=== PATIENT | female | born 1960 | race Caucasian/White ===

== ENCOUNTER 2017-02-07 17:20 | Inpatient (IN) | payer OTHER ==
[2017-02-07] MEDS ORDERED: Sodium Chloride 0.9% 1,000 ML IV STA (18:28)
--- NOTE | 2017-02-07 18:50 | ED PDOC ---
Arrival/HPI - General Chief Complaint: Chest Pain Time Seen by Provider: 02/07/17 17:52 Historian: Patient - History of Present Illness Narrative History of Present Illness (Text): 02/07/17 18:50 Carmen Santiago is a 56 year old female, with a prior hx of tia/stroke as per daughter in law, presents to the emergency department for evaluation following unwitnessed syncopal episode. Patient states that she had been feeling weak since waking up today morning and that she developed some dizziness and room- spinning sensation before she passed out in the the bathroom after taking a shower. Patient recalls events prior to passing out and states that she was unconscious on the bathroom floor for about 10-15 minutes. Patient was able to get back onto her feet and ambulate around the house, but felt weak and tired. When patient's daughter in law came back from work, she noticed that patient was pale and "not herself." Denies any fever, chills, headache, nausea, vomiting , diarrhea, urinary symptoms, or any other complaints at this time. Patient syncopal event occurred this morning. She was seen by daughter in law several hours later at approximately 430 pm. She also reports intermittent chest discomfort for past several days, sharp and stabbing, not pleuritic, not exertional. No calf pain or swelling. Time/Duration: Other (today morning ) Symptom Course: Unchanged Activities at Onset: Light Context: Home Past Medical History - Provider Review Nursing Documentation Reviewed: Yes - Cardiac Hx Hypertension: Yes - Pulmonary Hx Respiratory Disorders: No - Neurological Hx Transient Ischemic Attacks (TIA): Yes - HEENT Hx HEENT Disorder: No - Renal Hx Renal Disorder: No - Endocrine/Metabolic Hx Endocrine Disorders: No - Hematological/Oncological Hx Blood Disorders: No - Integumentary Hx Dermatological Disorder: No - Musculoskeletal/Rheumatological Hx Arthritis: Yes - Gastrointestinal Hx Gastrointestinal Disorders: No - Genitourinary/Gynecological Hx Genitourinary Disorders: No - Psychiatric Hx Psychophysiologic Disorder: No Hx Substance Use: No - Anesthesia Hx Anesthesia: No - Suicidal Assessment Feels Threatened In Home Enviroment: No Family/Social History - Physician Review Nursing Documentation Reviewed: Yes Family/Social History: No Known Family HX Smoking Status: Never Smoked Hx Alcohol Use: No Hx Substance Use: No Hx Substance Use Treatment: No Allergies/Home Meds Allergies/Adverse Reactions: Allergies No Known Allergies Allergy (Verified 10/20/15 23:43) Home Medications: Home Meds Medication Instructions Recorded Confirmed Alendronate [Fosamax] 70 mg PO BID 02/07/17 02/07/17 Calcium Carbonate/Vitamin D3 1 each PO BID 02/07/17 02/07/17 [Os-Talha 500-Vit D3 200 Caplet] Ergocalciferol [Drisdol] 50,000 iu PO DAILY 02/07/17 02/07/17 Gemfibrozil [Lopid] 600 mg PO BID 02/07/17 02/07/17 Omeprazole 20 mg PO BID 02/07/17 02/07/17 Pregabalin [Lyrica] 75 mg PO DAILY 02/07/17 02/07/17 Simvastatin [Zocor] 40 mg PO DAILY 02/07/17 02/07/17 Review of Systems - Review of Systems Constitutional: absent: Fatigue, Fevers, Night Sweats Eyes: absent: Vision Changes, Photophobia, Eye Pain ENT: absent: Hearing Changes, Sore Throat Respiratory: absent: SOB, Cough, Sputum Cardiovascular: Chest Pain, Syncope. absent: Palpitations, Calf Pain, REID Gastrointestinal: absent: Abdominal Pain, Constipation, Diarrhea, Nausea, Vomiting Genitourinary Female: absent: Dysuria, Frequency Musculoskeletal: absent: Back Pain Skin: absent: Rash Neurological: Dizziness. absent: Headache, Focal Weakness, Gait Changes Endocrine: absent: Polyuria Hemo/Lymphatic: absent: Easy Bleeding Physical Exam - Physical Exam Narrative Physical Exam (Text): Head: Atraumatic. Normocephalic. Eyes: PERRL. EOMI. Conjunctivae are not pale. ENT: Mucous membranes are moist and intact. Oropharynx is clear and symmetric. Neck: Supple. Full ROM. No JVD. No lymphadenopathy. Cardiovascular: Regular rate. Regular rhythm. Systolic murmur. Distal pulses are 2+ and symmetric. Pulmonary/Chest: No evidence of respiratory distress. Clear to auscultation bilaterally. No wheezing, rales or rhonchi. Abdominal: Obese. Soft and non-distended. There is no tenderness. No rebound , guarding, or rigidity. No organomegaly. Good bowel sounds. Back: No CVA tenderness. No midline tenderness. Extremities: Bilateral lower extremity edema, nonpitting. No joint pain with ROM. No cyanosis. No clubbing. Full range of motion in all extremities. No calf tenderness. Skin: Skin is pale. Neurological: Alert, awake, and oriented to person, place and time. No slurred speech. No facial droop. No pronator drift. No focal weakness. No sensory deficits. Psychiatric: Good eye contact. Normal interaction, affect, and behavior. Vital Signs Reviewed: Yes Vital Signs Pulse Resp BP Pulse Ox 02/07/17 19:23 65 17 103/65 98 02/07/17 17:21 68 20 115/69 97 Temperature: Afebrile Blood Pressure: Hypotensive Pulse: Regular Respiratory Rate: Normal Appearance: Positive for: Non-Toxic, Comfortable, Other (Obese ) Pain Distress: None Mental Status: Positive for: Alert and Oriented X 3 Medical Decision Making ED Course and Treatment: 02/07/17 18:58 Impression: A 56 year old female who presents to the emergency department for evaluation following syncopal episode. Differential Diagnosis included but are not limited to: cad, dehydration, cardiovascular disease, cva Plan: -- Labs, cardiac enzymes -- EKG -- Chest X-ray -- IVF -- Urinalysis -- Reassess and disposition Progress Notes: Patient is present with daughter in law who translates. On exam she is is hypotensive, but denies any pain or discomfort. Neurologically intact. She reports she has been eating and drinking well with no vomiting or diarrhea. IV fluids given and patient with improved BP. Currently no chest pain in ED although she has had nonspecific pain that is not exertional reportedly over past several days. Patient with no calf pain, Ddimer unremarkable. Dizziness resolved after iv fluids and patient ambulates without difficulty. No known past cardiac history reported. Re-exam, CT head unremarkable, neuro exam remains intact. Will admit to telemetry for syncope, hypotension. Renal insufficiency noted, no back pain or urinary symptoms described. Case reviewed with Dr. Ayala, accepts admission for hospitalist. Elevated WBC noted but patient afebrile, unremarkable lactate. No respiratory of GI complaints with serial exams. - Lab Interpretations Lab Results: 02/07/17 18:55 02/07/17 18:55 Lab Results 02/07/17 19:10: POC Glucose (mg/dL) 138 H 02/07/17 18:55: Urine Color Yellow, Urine Appearance Slight-cloudy, Urine pH 5.5 , Ur Specific [place] >= 1.030, Urine Protein 30 H, Urine Glucose (UA) Negative , Urine Ketones Trace H, Urine Blood Negative, Urine Nitrate Negative, Urine Bilirubin Small H, Urine Urobilinogen 1.0 H, Ur Leukocyte Esterase Trace H, Urine RBC TEST NOT PERFORMED, Urine WBC 5 - 10, Ur Epithelial Cells 10 - 12, Amorphous Sediment Moderate 02/07/17 18:55: Sodium 143, Chloride 102, Potassium 4.7, Carbon Dioxide 25, Anion Gap 21 H, BUN 34 H, Creatinine 1.6 H, Est GFR ( Amer) 40, Est GFR ( Non-Af Amer) 33, Random Glucose 110, Calcium 10.2, Total Bilirubin 0.6, AST 28, ALT 31, Alkaline Phosphatase 63, Lactate Dehydrogenase 665, Total Creatine Kinase 36, Troponin I < 0.01, Total Protein 7.7, Albumin 4.4, Globulin 3.3, Albumin/Globulin Ratio 1.4 02/07/17 18:55: pO2 38, VBG pH 7.27 L, VBG pCO2 60.0, VBG HCO3 27.6, VBG Total CO2 29.4 H, VBG O2 Sat (Calc) 69.5 H, VBG Base Excess -0.6 L, VBG Potassium 4.6 , Sodium 141.0, Chloride 106.0, Glucose 115 H, Lactate 1.7, FiO2 21.0, Venous Blood Potassium 4.6 02/07/17 18:55: PT 10.5, INR 0.97, APTT 23.4 L, D-Dimer, Quantitative 0.25 02/07/17 18:55: WBC 13.3 H, RBC 4.57, Hgb 13.1, Hct 38.9, MCV 85.1, MCH 28.7, MCHC 33.7, RDW 14.8 H, Plt Count 478 H, MPV 8.7, Gran % 73.6 H, Lymph % (Auto) 16.8 L, Person % (Auto) 8.2 H, Eos % (Auto) 1.2 L, Baso % (Auto) 0.2, Gran # 9.79 H, Lymph # 2.2, Person # 1.1 H, Eos # 0.2, Baso # 0.03 - RAD Interpretation Radiology Orders: 02/07/17 18:22 CHEST PORTABLE [RAD] Stat 02/07/17 19:10 HEAD W/O CONTRAST [CT] Stat - EKG Interpretation EKG Interpretation (Text): 02/07/17 22:55 EKG at 17:45 normal sinus rhythm rate of 63 with minimal voltage criteria for LVH Interpreted by ED Physician: Yes Type: 12 lead EKG - Medication Orders Current Medication Orders: Acetaminophen (Tylenol 325mg Tab) 650 mg PO Q6H PRN PRN Reason: Pain, moderate (4-7) Aspirin (Ecotrin) 81 mg PO DAILY MARY Atorvastatin Calcium (Lipitor) 20 mg PO DIN MARY Gemfibrozil (Lopid) 600 mg PO BID MARY Heparin Sodium (Porcine) (Heparin) 5,000 units SC Q12 MARY PRN Reason: Protocol Sodium Chloride (Sodium Chloride 0.9%) 1,000 mls @ 125 mls/hr IV .Q8H [facility] Last Admin: 02/07/17 22:03 Dose: 125 mls/hr Ceftriaxone Sodium (Rocephin 1 Gram Ivpb) 1 gm in 100 mls @ 100 mls/hr IVPB STAT STA PRN Reason: Protocol Stop: 02/07/17 22:54 Ondansetron HCl (Zofran Inj) 4 mg IVP Q6H PRN PRN Reason: Nausea/Vomiting Pantoprazole Sodium (Protonix Ec Tab) 40 mg PO DAILY MARY Pregabalin (Lyrica) 75 mg PO DAILY MARY Discontinued Medications Aspirin (Aspirin) 325 mg PO STAT STA Stop: 02/07/17 22:33 Heparin Sodium (Porcine) (Heparin) 5,000 units SC Q12 MARY PRN Reason: Protocol Sodium Chloride (Sodium Chloride 0.9%) 1,000 mls @ 1,000 mls/hr IV .Q1H STA Stop: 02/07/17 19:27 Last Admin: 02/07/17 19:00 Dose: 1,000 mls/hr Ceftriaxone Sodium (Rocephin 1 Gram Ivpb) 1 gm in 100 mls @ 100 mls/hr IVPB DAILY [facility] PRN Reason: Protocol - Scribe Statement The provider has reviewed the documentation as recorded by the Jimmyibsergo Mercado Provider Attestation: Provider Scribe Attestation: All medical record entries made by the Scribe were at my direction and personally dictated by me. I have reviewed the chart and agree that the record accurately reflects my personal performance of the history, physical exam, medical decision making, and the department course for this patient. I have also personally directed, reviewed, and agree with the discharge instructions and disposition. Disposition/Present on Arrival - Present on Arrival Any Indicators Present on Arrival: No History of DVT/PE: No History of Uncontrolled Diabetes: No Urinary Catheter: No History of Decub. Ulcer: No History Surgical Site Infection Following: None - Disposition Have Diagnosis and Disposition been Completed?: Yes Diagnosis: Syncope, Renal insufficiency, Chest pain, Leukocytosis Disposition: HOSPITALIZED Disposition Time: 19:40 Patient Plan: Admission, Telemetry Patient Problems: Current Active Problems Problem Status Onset Chest pain Acute Renal insufficiency Acute Syncope Acute Condition: FAIR
[2017-02-07 19:14] LABS: VENOUS BLOOD GAS BASE EXCESS -0.6 mmol/L (0.0-2.0); VENOUS BLOOD GAS PO2 38 mm/Hg (30-55); VENOUS BLOOD PH 7.27 (7.32-7.43)
[2017-02-07 19:18] LABS: BASO # 0.03 K/mm3 (0.0-2.0); BASO % 0.2 % (0.0-3.0); EOS # 0.2 (0.0-0.7); EOS % 1.2 % (1.5-5.0); GRAN # 9.79 (1.4-6.5); GRAN % 73.6 % (50.0-68.0); HEMOGLOBIN 13.1 gm/dL (12.0-16.0); LYMPH # 2.2 (1.2-3.4); LYMPH % 16.8 % (22.0-35.0); MEAN CELL VOLUME 85.1 fL (80.0-105.0); MEAN CORPUSCULAR HEMOGLOBIN 28.7 pg (25.0-35.0); MEAN CORPUSCULAR HGB CONC 33.7 g/dl (31.0-37.0); MEAN PLATELET VOLUME 8.7 fl (7.0-11.0); MONO # 1.1 (0.1-0.6); MONO % 8.2 % (1.0-6.0); PLATELET COUNT 478 10^3/uL (120.0-450.0); RBC 4.57 10^6/uL (3.5-6.1); RED CELL DISTRIBUTION WIDTH 14.8 % (11.5-14.5); WHITE BLOOD COUNT 13.3 10^3/ul (4.5-11.0)
[2017-02-07 19:21] LABS: PH,URINE 5.5 (4.7-8.0); URINE BILIRUBIN SMALL (NEGATIVE); URINE BLOOD NEGATIVE (NEGATIVE); URINE GLUCOSE (UA) NEGATIVE (NEGATIVE); URINE LEUKOCYTE ESTERASE TRACE Leu/uL (NEGATIVE); URINE NITRATE NEGATIVE (NEGATIVE); URINE PROTEIN 30 mg/dL (<30 mg/dL)
[2017-02-07 19:27] LABS: URINE APPEARANCE SLIGHT-CLOUDY (CLEAR); URINE COLOR YELLOW (YELLOW)
[2017-02-07 19:29] LABS: ALB/GLOB RATIO 1.4 (1.1-1.8); ALBUMIN 4.4 g/dL (3.0-4.8); ALT/SGPT 31 U/L (7-56); AST/SGOT 28 U/L (15-39); BLOOD UREA NITROGEN 34 mg/dL (7-21); CALCIUM 10.2 mg/dL (8.4-10.5); GFR AFRICAN-AMERICAN 40; GFR NON-AFRICAN AMERICAN 33
[2017-02-07 19:30] LABS: URINE AMORPHOUS SEDIMENT MODERATE
[2017-02-07 19:33] LABS: INR 0.97 (0.93-1.08); PARTIAL THROMBOPLASTIN TIME 23.4 Seconds (23.7-30.8); PROTHROMBIN TIME 10.5 Seconds (9.9-11.8)
[2017-02-07 19:34] LABS: D DIMER 0.25 mg/L FEU (0-0.50)
[2017-02-07 19:57] LABS: TROPONIN I < 0.01 ng/mL
--- NOTE | 2017-02-07 20:31 | CP.PCM.HP ---
<Porter Onofre - Last Filed: 02/08/17 03:42> History of Present Illness - History of Present Illness History of Present Illness: CC: pre-syncope and chest pressure Patient is a 56 year old female with a PMHx of TIA, HPL, GERD, and pericardial effusion who presents to the ED for evaluation of an unwitnessed pre-syncopal episode. States that she has been feeling week and dizzy for the past couple of day and the symptoms were exacerbated this AM after stepping out of the shower. States that she felt that the room was spinning and then sat down on the floor. She denies any loss of consciousness or hitting her head. After the pre- syncopal episode the patient felt weak and she was noted to have pale complexion by her friend. Additionally patient states she felt chest pressure localized to the left parasternal region. The pressure is worse with activity and is associated with her "jaw locking". Also admits to dysnpea on exertion. Denies fever, chills, blurry vision, tinnitis, abdominal pain, N/V, diarrhea, constipation, and urinary symptoms. PMHx: stroke, arthritis and obesity PSHx: none Allergies: NKDA Social Hx: denies ETOH use, denies Tobacco use, denies illicit drug use Medications: please see MAR ECG- NSR HR 63 QTc 413 Present on Admission - Present on Admission Any Indicators Present on Admission: No Review of Systems - Review of Systems Review of Systems: 12 point review of systems negative except as indicated in HPI. Past Patient History - Past Social History Smoking Status: Never Smoked - CARDIAC Hx Hypertension: Yes - PULMONARY Hx Respiratory Disorders: No - NEUROLOGICAL Hx Transient Ischemic Attacks (TIA): Yes - HEENT Hx HEENT Problems: No - RENAL Hx Chronic Kidney Disease: No - ENDOCRINE/METABOLIC Hx Endocrine Disorders: No - HEMATOLOGICAL/ONCOLOGICAL Hx Blood Disorders: No - INTEGUMENTARY Hx Dermatological Problems: No - MUSCULOSKELETAL/RHEUMATOLOGICAL Hx Arthritis: Yes - GASTROINTESTINAL Hx Gastrointestinal Disorders: No - GENITOURINARY/GYNECOLOGICAL Hx Genitourinary Disorders: No - PSYCHIATRIC Hx Psychophysiologic Disorder: No Hx Substance Use: No - SURGICAL HISTORY Hx Surgeries: No - ANESTHESIA Hx Anesthesia: No Meds Allergies/Adverse Reactions: Allergies Allergy/AdvReac Type Severity Reaction Status Date / Time No Known Allergies Allergy Verified 10/20/15 23:43 Physical Exam - Constitutional Appears: Non-toxic, No Acute Distress - Head Exam Head Exam: ATRAUMATIC, NORMAL INSPECTION - Eye Exam Eye Exam: EOMI, Normal appearance - ENT Exam ENT Exam: Mucous Membranes Moist - Neck Exam Neck exam: Positive for: Normal Inspection. Negative for: Tenderness - Respiratory Exam Respiratory Exam: Clear to Auscultation Bilateral, NORMAL BREATHING PATTERN. absent: Rales, Rhonchi, Wheezes - Cardiovascular Exam Cardiovascular Exam: REGULAR RHYTHM, +S1, +S2 - GI/Abdominal Exam GI & Abdominal Exam: Soft. absent: Guarding, Rebound, Rigid - Neurological Exam Neurological exam: Alert, CN II-XII Intact, Oriented x3 - Psychiatric Exam Psychiatric exam: Normal Affect, Normal Mood - Skin Skin Exam: Dry, Normal Color, Warm Results - Vital Signs Recent Vital Signs: Last Vital Signs Temp Pulse 65 02/07/17 19:23 Resp 17 02/07/17 19:23 BP 103/65 02/07/17 19:23 Pulse Ox 98 02/07/17 19:23 - Labs Result Diagrams: 02/07/17 18:55 02/07/17 18:55 Labs: Laboratory Results - last 24 hr 02/07/17 02/07/17 02/07/17 18:55 18:55 18:55 WBC 13.3 H RBC 4.57 Hgb 13.1 Hct 38.9 MCV 85.1 MCH 28.7 MCHC 33.7 RDW 14.8 H Plt Count 478 H MPV 8.7 Gran % 73.6 H Lymph % (Auto) 16.8 L [place] % (Auto) 8.2 H Eos % (Auto) 1.2 L Baso % (Auto) 0.2 Gran # 9.79 H Lymph # 2.2 [place] # 1.1 H Eos # 0.2 Baso # 0.03 PT 10.5 INR 0.97 APTT 23.4 L D-Dimer, Quantitative 0.25 pO2 38 VBG pH 7.27 L VBG pCO2 60.0 VBG HCO3 27.6 VBG Total CO2 29.4 H VBG O2 Sat (Calc) 69.5 H VBG Base Excess -0.6 L VBG Potassium 4.6 Sodium 141.0 Chloride 106.0 Glucose 115 H Lactate 1.7 FiO2 21.0 Potassium Carbon Dioxide Anion Gap BUN Creatinine Est GFR ( Amer) Est GFR (Non-Af Amer) POC Glucose (mg/dL) Random Glucose Calcium Total Bilirubin AST ALT Alkaline Phosphatase Lactate Dehydrogenase Total Creatine Kinase Troponin I Total Protein Albumin Globulin Albumin/Globulin Ratio Venous Blood Potassium 4.6 Urine Color Urine Appearance Urine pH Ur Specific [place] Urine Protein Urine Glucose (UA) Urine Ketones Urine Blood Urine Nitrate Urine Bilirubin Urine Urobilinogen Ur Leukocyte Esterase Urine RBC Urine WBC Ur Epithelial Cells Amorphous Sediment 02/07/17 02/07/17 02/07/17 18:55 18:55 19:10 WBC RBC Hgb Hct MCV MCH MCHC RDW Plt Count MPV Gran % Lymph % (Auto) [place] % (Auto) Eos % (Auto) Baso % (Auto) Gran # Lymph # [place] # Eos # Baso # PT INR APTT D-Dimer, Quantitative pO2 VBG pH VBG pCO2 VBG HCO3 VBG Total CO2 VBG O2 Sat (Calc) VBG Base Excess VBG Potassium Sodium 143 Chloride 102 Glucose Lactate FiO2 Potassium 4.7 Carbon Dioxide 25 Anion Gap 21 H BUN 34 H Creatinine 1.6 H Est GFR ( Amer) 40 Est GFR (Non-Af Amer) 33 POC Glucose (mg/dL) 138 H Random Glucose 110 Calcium 10.2 Total Bilirubin 0.6 AST 28 ALT 31 Alkaline Phosphatase 63 Lactate Dehydrogenase 665 Total Creatine Kinase 36 Troponin I < 0.01 Total Protein 7.7 Albumin 4.4 Globulin 3.3 Albumin/Globulin Ratio 1.4 Venous Blood Potassium Urine Color Yellow Urine Appearance Slight-cloudy Urine pH 5.5 Ur Specific [place] >= 1.030 Urine Protein 30 H Urine Glucose (UA) Negative Urine Ketones Trace H Urine Blood Negative Urine Nitrate Negative Urine Bilirubin Small H Urine Urobilinogen 1.0 H Ur Leukocyte Esterase Trace H Urine RBC TEST NOT PERFORMED Urine WBC 5 - 10 Ur Epithelial Cells 10 - 12 Amorphous Sediment Moderate Assessment & Plan - Assessment and Plan (Free Text) Assessment: Patient is a 56 year old female with a PMHx of TIA, HPL, GERD, and pericardial effusion who is being admitted to the hospital for evaluation and treatment of a pre-syncopal episode and chest pressure. 1. Pre-syncope; Dizziness - cardiac vs orthostatic vs vasovagal vs orthostatic - CT of head ordered by ED and is pending at time of admission - Neuro checks - Sabrina Sosa Pixs negative - Orthostatics - EKG reviewed- NSR HR 63 QTc 413 2. Chest Pain - Hx of Pericardial effusion- patient left AMA and did not follow up with physician - trend troponins - serial EKGs - ECHO - Cardiology consult - TSH - start aspirin 81mg if the CT of head shows no acute intracranial hemorrhage 3. SHA - likely pre-renal in nature - NS @ 125 - fluids started before FeNA Urinary Na could be orderd 4. Possible UTI; leukocytosis - blood cultures - urine cultures - one time dose of ceftriaxone then recheck UTI in AM 5. Acidemia on VBG - not retaining Co2 - repeat VBG in AM 6. History of Migraine Headaches - continue home lyrica 7. Morbid Obesity - lipid profile - A1C 8. History of HPL - lipid profile - continue home gemfibrozil - continue home statin 9. PPX - subq heparin q12 starting tmr if the CT of head shows no acute intracranial hemorrhage - pantoprazole - patient discussed with attending, Dr. Ayala. <Lucy PATTERSON,Oli - Last Filed: 02/08/17 06:46> Results - Vital Signs Recent Vital Signs: Last Vital Signs Temp 97.6 F 02/08/17 04:00 Pulse 70 02/08/17 06:00 Resp 18 02/08/17 04:00 BP 148/80 02/08/17 04:00 Pulse Ox 98 02/08/17 04:00 - Labs Result Diagrams: 02/07/17 18:55 02/07/17 18:55 Labs: Laboratory Results - last 24 hr 02/08/17 02/08/17 01:40 01:40 Lactic Acid 1.4 Total Creatine Kinase 21 L Troponin I < 0.01 NT-Pro-B Natriuret Pep 81.7 Attending/Attestation - Attestation I have personally seen and examined this patient.: Yes I have fully participated in the care of the patient.: Yes I have reviewed all pertinent clinical information: Yes Notes (Text): 02/08/17 06:45 -I agree with above H&P completed by the resident physician with the following additions and/or changes: The patient is a 56 year old, morbidly obese, Slovak speaking, woman with a history of TIA, HL and GERD. Of note, per old records, the patient was [place] [facility] [place]. On that admission, the she was found to have an anterior pericardial effusion on 2D-echo and elevated serum troponin, for which a cardiac cath was planned. However, she left AMA prior to the procedure. She admits to not following up with any service desk agent since that time. She now presents with pre-syncope, fatigue, chest pain and SHA. Consequently, a 2D-echo , serial trops and EKGs, HgA1c, lipids and TSH have been ordered. She will be placed on aggressive IVFs and orthostatics will also be checked. Cardiology has been consulted.
--- NOTE | 2017-02-07 20:36 | CARD ---
APPROVED REPORT EKG Measurement Heart [id number] <Conclusion> Normal sinus rhythm Minimal voltage criteria for LVH, may be normal variant Borderline ECG
[2017-02-07] MEDS ORDERED: cefTRIAXone 1 gm 1 GM/100 ML BAG IVPB STA (21:55)
[2017-02-07] MEDS: Sodium Chloride 0.9% 1,000 ML IV SCH (22:03)
--- NOTE | 2017-02-07 22:10 | CT ---
EXAM: CT Head Without Intravenous Contrast CLINICAL HISTORY: The patient age is 56 years old and is female; Signs and symptoms; Syncope and collapse Facility exam id and description: Ct heads head w/o contrast TECHNIQUE: Axial computed tomography images of the head/brain without intravenous contrast. This CT exam was performed using one or more of the following dose reduction techniques: automated exposure control, adjustment of the mA and/or kV according to patient size, and/or use of iterative reconstruction technique. EXAM DATE/TIME: 02/07/2017 7:10 PM COMPARISON: CT - HEAD W/O CONTRAST 10/22/2015 8:07:25 AM FINDINGS: Brain: Artifact limits evaluation of the base of the brain. The white-kelsey differentiation is preserved demonstrating no acute territorial type infarct. No acute intracranial hemorrhage is seen. There are calcifications within the globus pallidus bilaterally, which are likely physiologic. No edema. Midline shift: There is no midline shift. Ventricles: No ventriculomegaly. Bones/joints: The calvarium demonstrates no evidence for a depressed fracture. Soft tissues: No acute abnormality. Vasculature: There is minimal atherosclerotic calcification of the cavernous internal carotid arteries. Sinuses: A small mucous retention cyst or polyp is visualized within the left maxillary sinus. Mild polypoid mucosal thickening is visualized within the right frontal sinus. Mastoid air cells: No mastoid effusion. IMPRESSION: 1. No definitive acute intracranial hemorrhage or acute territorial type infarct. Artifact limits evaluation of the base of the brain. 2. Paranasal sinus disease is noted above.
[2017-02-08 00:44] VITALS: BMI 50.8
[2017-02-08 02:23] LABS: B-TYPE NATRIURETIC PEPTIDE 81.7 pg/mL (0-450)
[2017-02-08 02:28] LABS: TROPONIN I < 0.01 ng/mL
[2017-02-08 04:25] VITALS: RESP 18
[2017-02-08] MEDS: Sodium Chloride 0.9% 1,000 ML IV SCH (06:50)
[2017-02-08 07:03] LABS: VENOUS BLOOD GAS BASE EXCESS -0.4 mmol/L (0.0-2.0); VENOUS BLOOD GAS PO2 201 mm/Hg (30-55); VENOUS BLOOD PH 7.38 (7.32-7.43)
[2017-02-08 07:07] LABS: BASO # 0.02 K/mm3 (0.0-2.0); BASO % 0.2 % (0.0-3.0); EOS # 0.1 (0.0-0.7); EOS % 1.3 % (1.5-5.0); HEMOGLOBIN 11.2 gm/dL (12.0-16.0); LYMPH # 2.1 (1.2-3.4); LYMPH % 22.5 % (22.0-35.0); MEAN CELL VOLUME 83.9 fL (80.0-105.0); MEAN CORPUSCULAR HEMOGLOBIN 27.8 pg (25.0-35.0); MEAN CORPUSCULAR HGB CONC 33.1 g/dl (31.0-37.0); MEAN PLATELET VOLUME 8.6 fl (7.0-11.0); MONO # 0.8 (0.1-0.6); PLATELET COUNT 372 10^3/uL (120.0-450.0); RBC 4.03 10^6/uL (3.5-6.1); RED CELL DISTRIBUTION WIDTH 14.5 % (11.5-14.5); WHITE BLOOD COUNT 9.4 10^3/ul (4.5-11.0)
[2017-02-08 07:27] LABS: ALB/GLOB RATIO 1.1 (1.1-1.8); ALBUMIN 3.4 g/dL (3.0-4.8); ALT/SGPT 28 U/L (7-56); AST/SGOT 21 U/L (15-39); BLOOD UREA NITROGEN 23 mg/dL (7-21); CALCIUM 8.9 mg/dL (8.4-10.5); GFR AFRICAN-AMERICAN > 60; GFR NON-AFRICAN AMERICAN > 60; HDL CHOLESTEROL 59 mg/dL (29-60); MAGNESIUM 1.9 mg/dL (1.7-2.2)
[2017-02-08 07:38] LABS: LDL CHOLESTEROL 119 mg/dL (0-129)
[2017-02-08 07:41] LABS: TROPONIN I < 0.01 ng/mL
[2017-02-08] MEDS ORDERED: cefTRIAXone 1 gm 1 GM/100 ML BAG IVPB SCH (10:00)
[2017-02-08] MEDS ORDERED: Pantoprazole 40 mg EC Tab PO SCH (10:00)
--- NOTE | 2017-02-08 10:20 | RAD ---
HISTORY: chest pain COMPARISON: Comparison made with prior study 10/21/2015. FINDINGS: LUNGS: Poor inspiration with low lung volumes, mild crowded markings bronchovascular and mild bibasilar atelectasis. There is also elevation of the right hemidiaphragm which could be due to eventration. Note that the medial lung apices are partially obscured by overlying facial soft tissue and mandible artifact. PLEURA: No significant pleural effusion identified, no pneumothorax apparent. CARDIOVASCULAR: Cardiomegaly. OSSEOUS STRUCTURES: No significant abnormalities. VISUALIZED UPPER ABDOMEN: Normal. OTHER FINDINGS: None. IMPRESSION: Poor inspiration with low lung volumes, mild crowded markings bronchovascular and mild bibasilar atelectasis. There is also elevation of the right hemidiaphragm which could be due to eventration
[2017-02-08 10:29] VITALS: O2SAT 99
[2017-02-08 12:06] LABS: URINE BILIRUBIN NEGATIVE (NEGATIVE); URINE BLOOD TRACE-INTACT (NEGATIVE); URINE GLUCOSE (UA) NEGATIVE (NEGATIVE); URINE LEUKOCYTE ESTERASE NEGATIVE Leu/uL (NEGATIVE); URINE NITRATE NEGATIVE (NEGATIVE); URINE PROTEIN NEGATIVE mg/dL (<30 mg/dL); URINE UROBILINOGEN 0.2 E.U./dL (<1 E.U./dL)
[2017-02-08 12:12] LABS: URINE APPEARANCE CLEAR (CLEAR); URINE COLOR YELLOW (YELLOW)
[2017-02-08 12:32] LABS: URINE BACTERIA FEW (NEG); URINE RBC 0 - 2 /hpf (0-2); URINE WBC 0 - 2 /hpf (0-6)
[2017-02-08 13:26] VITALS: PULSE 73
[2017-02-08 13:40] VITALS: BP 160/81; TEMP 92.5
[2017-02-08 15:00] LABS: TROPONIN I < 0.01 ng/mL
--- NOTE | 2017-02-08 17:50 | CON ---
DATE: 02/08/2017 INDICATIONS: Dizziness, lightheadedness, possible syncope. HISTORY OF PRESENT ILLNESS: This is 56-year-old Spanish woman, who does not speak Chinese. The information is from the chart and Dr. Willingham. She has lightheaded episode at home and may have passed out, although this is not definite. She has been on under some stress, and currently there is a illness in the family. She had prior syncope and was worked up in [facility] in the past. There was no chest pain, shortness of breath, orthopnea, PND, edema. There was a vertiginous sensation. There was no fever, chills, cough, sputum production, hemoptysis, abdominal pain, nausea, vomiting, diarrhea, constipation or melena. PAST MEDICAL HISTORY: Notable for possible TIA in the past, obesity, arthritis, and GERD. MEDICATIONS AT THE TIME OF ADMISSION: Included Drisdol, Fosamax, Lopid, Lyrica, omeprazole, Os-Talha, Zocor. ALLERGIES: There are no medications allergies reported. SOCIAL HISTORY: She lives at home. She is ambulatory. She does not smoke cigarettes or drink alcohol. FAMILY HISTORY: Noncontributory. REVIEW OF SYSTEMS: A 10-point review of systems is limited due to language barrier. PHYSICAL EXAMINATION: GENERAL: She is well developed, elderly woman, in no acute distress. Sitting on her bed in telemetry. VITAL SIGNS: Unremarkable. She is in sinus rhythm at 76 beats per minute. She is afebrile. Blood pressure 131/68, respirations 16-20. On room air, the saturation is 94% to 99%. HEENT: Reveals no neck pain distention, thyromegaly or carotid bruit. Mucous membranes are moist. Conjunctivae pink. NECK: Supple. CHEST: Lung packer clear throughout. I did not appreciate wheezing. HEART: Normal first and second heart sounds. No murmur, gallop, rub or click. ABDOMEN: Soft and bowel sounds are present. No mass or organomegaly, tenderness, rebound or guarding. No CVA tenderness. No palpable abdominal aortic aneurysm. EXTREMITIES: No cyanosis, clubbing or edema. NEUROLOGIC: She is awake, alert and oriented. PSYCHIATRIC: Normal to less than mood and affect. SKIN: Warm and dry. No rashes or cellulitis. LABORATORY AND IMAGING: EKG demonstrates regular sinus rhythm with a leftward axis, mild nonspecific ST wave changes, basically unchanged from a prior cardiogram. A chest x-ray revealed poor inspiration with low lung volumes and an elevated right hemidiaphragm. CT scan of the head reveals no definitive acute intracranial hemorrhage or acute territorial type infarct. Artifact limited evaluation of the base of the brain. White count 13,300, repeat 9,400; hemoglobin 13.1; hematocrit 38.9, repeat 11.2 and 33.8 respectively; platelet count 372,000. PT, INR, PTT, D-dimmer unremarkable. Blood gas noted. Electrolytes unremarkable. BUN 34, creatinine 1.6, repeat 23 and 0.9 respectively. Lactic acid 1.4. LFTs unremarkable. Cardiac enzymes x3 unremarkable. Total cholesterol 197, triglycerides 116, LDL 119, cholesterol 197, HDL 59, TSH normal. Urinalysis noted. ASSESSMENT AND PLAN: The patient is a 56-year-old woman, who suffered an episode of dizziness, lightheadedness, possible brief syncope without fall or injury with a history of prior syncope episode, under stress at home, with a negative workup so far with benign telemetry, unremarkable EKG and negative cardiac enzymes. She has mild orthostatic changes noted and no arrhythmia on telemetry. She has been cultured. She is getting IV fluids, subQ heparin, aspirin, Lipitor, Lopid, Lyrica, Protonix. She can be out of bed. We will check an echocardiogram. She will have neuro signs and postural vital signs checked again. She could be consider for outpatient nuclear stress testing once her symptoms subside. I will follow along with you. I will make additional recommendations based on her clinical course. Meet Lees MD MTDKirsten
--- NOTE | 2017-02-09 08:10 | CARD ---
APPROVED REPORT EXAM: Two-dimensional and M-mode echocardiogram with Doppler and color Doppler. INDICATION Syncope 2D DIMENSIONS Left Atrium (2D)3.8 (1.6-4.0cm)IVSd1.0 (0.7-1.1cm) LVDd4.8 (3.9-5.9cm)PWd1.1 (0.7-1.1cm) LVDs3.0 (2.5-4.0cm)FS (%) 36.7 % LVEF (%)66.4 (>50%) M-Mode DIMENSIONS Aortic Root3.00 (2.2-3.7cm)Aortic Cusp Exc.1.60 (1.5-2.0cm) Aortic Valve AoV Peak Emtsmpwp292.0cm/sAoV VTI38.5cmAO Peak GR.16mmHg AO Mean GR.8mmHg Mitral Valve MV E Kucmtdiu81.3cm/sMV A Zkqhdhjy250.0cm/sE/A ratio0.9 TDI Lateral E' Peak V13.20cm/sMedial E' Peak V7.51cm/sE/Lateral E'6.9 E/Medial E'12.2 Pulmonary Valve PV Peak Vyeiyuwo447.0cm/sPV Peak Grad.7mmHg Tricuspid Valve TR Peak Snutwryj168tx/sRAP [id number] Peak Gr.27mmHg [id number] LEFT VENTRICLE The left ventricle is normal size. There is normal left ventricular wall thickness. The left ventricular function is normal. The left ventricular ejection fraction is within the normal range. RIGHT VENTRICLE The right ventricle is normal size. The right ventricular systolic function is normal. ATRIA The left atrium size is normal. The right atrium size is normal. The interatrial septum is intact with no evidence for an atrial septal defect. AORTIC VALVE The aortic valve is normal in structure. No aortic regurgitation is present. There is no aortic valvular stenosis. MITRAL VALVE The mitral valve is normal in structure. There is no mitral valve regurgitation noted. TRICUSPID VALVE The tricuspid valve is normal in structure. There is trace to mild tricuspid regurgitation. GREAT VESSELS The aortic root is normal in size. The IVC is normal in size and collapses >50% with inspiration. PERICARDIAL EFFUSION There is no pleural effusion. There is no pericardial effusion. <Conclusion> Normal study.
--- NOTE | 2017-02-09 22:46 | CP.PCM.DIS ---
Provider - Provider Date of Admission: 02/07/17 20:25 Attending physician: Luis A Willingham MD Primary care physician: Naeem Handy MD Time Spent in preparation of Discharge (in minutes): 45 Hospital Course - Lab Results Lab Results: Micro Results 02/07/17 21:30 Blood Blood Culture - Preliminary NO GROWTH AFTER 48 HOURS Most Recent Lab Values WBC 9.4 10^3/ul (4.5-11.0) D 02/08/17 05:45 RBC 4.03 10^6/uL (3.5-6.1) 02/08/17 05:45 Hgb 11.2 gm/dL (12.0-16.0) L 02/08/17 05:45 Hct 33.8 % (36.0-48.0) L 02/08/17 05:45 MCV 83.9 fL (80.0-105.0) 02/08/17 05:45 MCH 27.8 pg (25.0-35.0) 02/08/17 05:45 MCHC 33.1 g/dl (31.0-37.0) 02/08/17 05:45 RDW 14.5 % (11.5-14.5) 02/08/17 05:45 Plt Count 372 10^3/uL (120.0-450.0) 02/08/17 05:45 MPV 8.6 fl (7.0-11.0) 02/08/17 05:45 Gran % 68.0 % (50.0-68.0) 02/08/17 05:45 Lymph % (Auto) 22.5 % (22.0-35.0) 02/08/17 05:45 [place] % (Auto) 8.0 % (1.0-6.0) H 02/08/17 05:45 Eos % (Auto) 1.3 % (1.5-5.0) L 02/08/17 05:45 Baso % (Auto) 0.2 % (0.0-3.0) 02/08/17 05:45 Gran # 6.40 (1.4-6.5) 02/08/17 05:45 Lymph # 2.1 (1.2-3.4) 02/08/17 05:45 [place] # 0.8 (0.1-0.6) H 02/08/17 05:45 Eos # 0.1 (0.0-0.7) 02/08/17 05:45 Baso # 0.02 K/mm3 (0.0-2.0) 02/08/17 05:45 PT 10.5 Seconds (9.9-11.8) 02/07/17 18:55 INR 0.97 (0.93-1.08) 02/07/17 18:55 APTT 23.4 Seconds (23.7-30.8) L 02/07/17 18:55 D-Dimer, Quantitative 0.25 mg/L FEU (0-0.50) 02/07/17 18:55 pO2 201 mm/Hg (30-55) H 02/08/17 05:45 VBG pH 7.38 (7.32-7.43) 02/08/17 05:45 VBG pCO2 42.0 (40-60) 02/08/17 05:45 VBG HCO3 24.8 mmol/l (21-28) 02/08/17 05:45 VBG Total CO2 29.4 mmol.L (22-28) H 02/07/17 18:55 VBG O2 Sat (Calc) 98.9 % (40-65) H 02/08/17 05:45 VBG Base Excess -0.4 mmol/L (0.0-2.0) L 02/08/17 05:45 VBG Potassium 4.6 mmol/L (3.6-5.2) 02/07/17 18:55 Sodium 141.0 mmol/L (132-148) 02/07/17 18:55 Chloride 106.0 mmol/L (98-107) 02/07/17 18:55 Glucose 115 mg/dl (65-105) H 02/07/17 18:55 Lactate 1.7 mmol/L (0.7-2.1) 02/07/17 18:55 FiO2 21.0 % 02/07/17 18:55 Sodium 143 mmol/L (132-148) 02/08/17 05:45 Potassium 4.0 mmol/L (3.6-5.0) 02/08/17 05:45 Chloride 110 mmol/L (98-107) H 02/08/17 05:45 Carbon Dioxide 24 mmol/L (21-33) 02/08/17 05:45 Anion Gap 13 (10-20) 02/08/17 05:45 BUN 23 mg/dL (7-21) H 02/08/17 05:45 Creatinine 0.9 mg/dL (0.5-1.4) 02/08/17 05:45 Est GFR ( Amer) > 60 02/08/17 05:45 Est GFR (Non-Af Amer) > 60 02/08/17 05:45 POC Glucose (mg/dL) 138 mg/dL (65-110) H 02/07/17 19:10 Random Glucose 89 mg/dL (70-110) 02/08/17 05:45 Hemoglobin A1c 6.5 % (4.2-6.5) 02/08/17 05:45 Lactic Acid 1.4 mmol/L (0.7-2.1) 02/08/17 01:40 Calcium 8.9 mg/dL (8.4-10.5) 02/08/17 05:45 Phosphorus 3.8 mg/dL (2.5-4.5) 02/08/17 05:45 Magnesium 1.9 mg/dL (1.7-2.2) 02/08/17 05:45 Total Bilirubin 0.3 mg/dL (0.2-1.3) 02/08/17 05:45 AST 21 U/L (15-39) 02/08/17 05:45 ALT 28 U/L (7-56) 02/08/17 05:45 Alkaline Phosphatase 60 U/L (38-133) 02/08/17 05:45 Lactate Dehydrogenase 665 U/L (333-699) 02/07/17 18:55 Total Creatine Kinase 23 U/L (35-230) L 02/08/17 14:30 Troponin I < 0.01 ng/mL 02/08/17 14:30 NT-Pro-B Natriuret Pep 81.7 pg/mL (0-450) 02/08/17 01:40 Total Protein 6.5 g/dL (5.8-8.3) 02/08/17 05:45 Albumin 3.4 g/dL (3.0-4.8) 02/08/17 05:45 Globulin 3.1 gm/dL 02/08/17 05:45 Albumin/Globulin Ratio 1.1 (1.1-1.8) 02/08/17 05:45 Triglycerides 116 mg/dL (35-160) 02/08/17 05:45 Cholesterol 197 mg/dL (130-200) 02/08/17 05:45 LDL Cholesterol Direct 119 mg/dL (0-129) 02/08/17 05:45 HDL Cholesterol 59 mg/dL (29-60) 02/08/17 05:45 TSH 3rd Generation 0.50 mIU/mL (0.46-4.68) 02/08/17 05:45 Venous Blood Potassium 4.6 mmol/L (3.6-5.2) 02/07/17 18:55 Urine Color Yellow (YELLOW) 02/08/17 10:58 Urine Appearance Clear (CLEAR) 02/08/17 10:58 Urine pH 6.0 (4.7-8.0) 02/08/17 10:58 Ur Specific [place] <= 1.005 (1.005-1.035) 02/08/17 10:58 Urine Protein Negative mg/dL (<30 mg/dL) 02/08/17 10:58 Urine Glucose (UA) Negative mg/dL (NEGATIVE) 02/08/17 10:58 Urine Ketones Negative mg/dL (NEGATIVE) 02/08/17 10:58 Urine Blood Trace-intact (NEGATIVE) H 02/08/17 10:58 Urine Nitrate Negative (NEGATIVE) 02/08/17 10:58 Urine Bilirubin Negative (NEGATIVE) 02/08/17 10:58 Urine Urobilinogen 0.2 E.U./dL (<1 E.U./dL) 02/08/17 10:58 Ur Leukocyte Esterase Negative Matilde/uL (NEGATIVE) 02/08/17 10:58 Urine RBC 0 - 2 /hpf (0-2) 02/08/17 10:58 Urine WBC 0 - 2 /hpf (0-6) 02/08/17 10:58 Ur Epithelial Cells 1 - 3 /hpf (0-5) 02/08/17 10:58 Amorphous Sediment Moderate 02/07/17 18:55 Urine Bacteria Few (NEG) 02/08/17 10:58 Urine Other Uyeast 02/08/17 10:58 - Hospital Course Hospital Course: Ms. Santiago is a 56 year old [place] female with a PMHx of TIA, DLD, GERD, obesity and pericardial effusion who presents to the ED for evaluation of an unwitnessed pre-syncopal episode. States that she has been feeling week and dizzy for the past couple of days and the symptoms were exacerbated this AM before stepping into the shower. States that she felt that the room was spinning and then sat down on the floor. When she took her BP with a machine at home, she notes that it was 70/60 and after 1 hr was 60/40. Pt states that she doesn't measure her BP often, but that she usually runs high. She denies any loss of consciousness or hitting her head. After the pre-syncopal episode the patient felt weak and she was noted to have pale complexion by her daughter. Denies fever, chills, blurry vision, tinnitis, abdominal pain, N/V, diarrhea, constipation, and urinary symptoms. Patient had a prior admission in 10/2015 for the same complaints as well as L sided weakness and was worked up fully but all results were negative, and pt signed out AMA. In ED, EKG showed NSR with HR 63. [place] Hallpike maneuver was negative. CT Head w/ o contrast showed no acute hemorrhage or infarcts. Pt was in SHA likely 2/2 dehydration (BUN/Cr: 34/1.6); pt was started on NS and was transferred to the telemetry unit for further monitoring and management. On the floors, pt was complained of a little dizziness, and when asked about family history, pt states that her daughter (28yo) was diagnosed with breast CA in 10/2016. Pt becomes emotional. Pt denies cp, sob, fevers, palpitations, headaches or weakness since the episode. she states that she drinks plenty of water and that she did not feel dehydrated. Additionally patient states she felt chest pressure localized to the left parasternal region that is intermittent in nature and usually resolves on its own. Cardio was consulted and recs were followed. troponins were neg x3. SHA improved the day following admission. An ECHO was done which showed no pericardial effusion or any abnormalities; EF 66%. PT evaluated the patient and recommended outpt PT for sciatica symptoms and strengthening. Prior to admission, the patient denies cp, palpitations, dizziness, sob, weakness, fevers, n/v/d. Pt is instructed to f/u PMD w/i 1 week (either Dr. Handy or [facility] clinic) and Dr. Lees for Cardio f/u and stress test on 02/14, and PT for sciatica symptoms. Numbers and information was provided for patient and all questions answered. - Date & Time of H&P Date of H&P: 02/07/17 Time of H&P: 20:30 Discharge Exam - Additional Findings Additional findings: - Constitutional Appears: Non-toxic, No Acute Distress - Head Exam Head Exam: ATRAUMATIC, NORMAL INSPECTION - Eye Exam Eye Exam: EOMI, Normal appearance - ENT Exam ENT Exam: Mucous Membranes Moist - Neck Exam Neck exam: Positive for: Normal Inspection. Negative for: Tenderness - Respiratory Exam Respiratory Exam: Clear to Auscultation Bilateral, NORMAL BREATHING PATTERN. absent: Rales, Rhonchi, Wheezes - Cardiovascular Exam Cardiovascular Exam: REGULAR RHYTHM, +S1, +S2 - GI/Abdominal Exam GI & Abdominal Exam: Soft. absent: Guarding, Rebound, Rigid - Neurological Exam Neurological exam: Alert, CN II-XII Intact, Oriented x3 - Psychiatric Exam Psychiatric exam: Normal Affect, Normal Mood - Skin Skin Exam: Dry, Normal Color, Warm Discharge Plan - Follow Up Plan Condition: FAIR Disposition: HOME/ ROUTINE Instructions: Cardiac Stress Test (GEN), Chest Pain (ED), Heart Healthy Diet ( GEN), Syncope (ED), Cholesterol and Your Health (GEN) Additional Instructions: Discharge instructions: Follow up with PMD within 1 week and/or [facility] ([phone]). Follow up with Dr. Lees for scheduled outpatient stress test on February 14 and February 15, 2017. Stress Lab phone number : #[phone]. Transportation phone number #[phone]. Continue all home medications. If symptoms return or worsen, please return to hospital. Please follow up also with physical therapy, in regards to Sciatica and strengthening. Diet: Heart Healthy diet Patient refuses flu and pneumococcal vaccines. Referrals: Naeem Handy MD [Primary Care Provider] -
== END 2017-02-08 17:01 | disposition home or self-care (01) | DRG 543 ==
LOC: ED 17:20 → ERH 20:25 → 2RSO 23:22
PROVIDERS: ADMIT Internal Medicine; ATTEND Internal Medicine
DX: R55 Syncope and collapse (principal); R07.89 Other chest pain; N17.9 Acute kidney failure, unspecified; E87.2 Acidosis; E66.01 Morbid (severe) obesity due to excess calories; E86.0 Dehydration; K21.9 Gastro-esophageal reflux disease without esophagitis; I10 Essential (primary) hypertension; G43.909 Migraine, unspecified, not intractable, without status migrainosus; Z86.73 Personal history of transient ischemic attack (TIA), and cerebral infarction without residual deficits

== ENCOUNTER 2017-05-14 18:13 | Emergency (ER) | payer OTHER ==
[2017-05-14 18:28] VITALS: BMI 46.0
[2017-05-14 18:33] VITALS: TEMP 97.6
[2017-05-14] MEDS ORDERED: diaZEpam 10 mg/2 ml Inj IVP ONE (18:44)
[2017-05-14 19:17] LABS: BASO # 0.05 K/mm3 (0.0-2.0); BASO % 0.4 % (0.0-3.0); EOS # 0.1 (0.0-0.7); EOS % 0.5 % (1.5-5.0); GRAN # 8.87 (1.4-6.5); HEMATOCRIT 40.4 % (36.0-48.0); LYMPH # 1.9 (1.2-3.4); LYMPH % 16.2 % (22.0-35.0); MEAN CELL VOLUME 85.4 fl (80.0-105.0); MEAN CORPUSCULAR HEMOGLOBIN 27.9 pg (25.0-35.0); MEAN CORPUSCULAR HGB CONC 32.7 g/dl (31.0-37.0); MEAN PLATELET VOLUME 8.6 fl (7.0-11.0); MONO # 0.6 (0.1-0.6); MONO % 4.9 % (1.0-6.0); RED CELL DISTRIBUTION WIDTH 14.6 % (11.5-14.5); WHITE BLOOD COUNT 11.4 10^3/ul (4.5-11.0)
--- NOTE | 2017-05-14 20:08 | ED PDOC ---
Arrival/HPI - General Chief Complaint: Lower Extremity Problem/Injury Time Seen by Provider: 05/14/17 18:32 Historian: Patient - History of Present Illness Narrative History of Present Illness (Text): 05/14/17 20:04 56yo female with pmhx of hypertension and RA who present with complaint of severe lower back pain that radiates to her b/l leg x one week. she notes history of leg pain that has become worse for the past 5days. States she was taking Tylenol at home without relieve. Pain worse with movement. Denies any ripping/tearing upper back pain, trauma, fecal/urinary incontinence, retention, chest pain, SOB, recent travel, focal weakness, any other complaint. Past Medical History - Provider Review Nursing Documentation Reviewed: Yes - Infectious Disease Hx of Infectious Diseases: None - Cardiac Hx Cardiac Disorders: Yes Hx Hypertension: Yes - Pulmonary Hx Respiratory Disorders: No - Neurological Hx Neurological Disorder: Yes Hx Transient Ischemic Attacks (TIA): Yes - HEENT Hx HEENT Disorder: No - Renal Hx Renal Disorder: No - Endocrine/Metabolic Hx Endocrine Disorders: No - Hematological/Oncological Hx Blood Disorders: No - Integumentary Hx Dermatological Disorder: No - Musculoskeletal/Rheumatological Hx Arthritis: Yes Hx Rheumatoid Arthritis: Yes - Gastrointestinal Hx Gastrointestinal Disorders: No - Genitourinary/Gynecological Hx Genitourinary Disorders: No - Psychiatric Hx Psychophysiologic Disorder: No Hx Substance Use: No - Anesthesia Hx Anesthesia: No - Suicidal Assessment Feels Threatened In Home Enviroment: No Family/Social History - Physician Review Nursing Documentation Reviewed: Yes Family/Social History: Unknown Family HX Smoking Status: Never Smoked Hx Alcohol Use: No Hx Substance Use: No Hx Substance Use Treatment: No Allergies/Home Meds Allergies/Adverse Reactions: Allergies No Known Allergies Allergy (Verified 05/14/17 18:27) Home Medications: Home Meds Medication Instructions Recorded Confirmed Alendronate [Fosamax] 70 mg PO BID 02/07/17 02/07/17 Calcium Carbonate/Vitamin D3 1 each PO BID 02/07/17 02/07/17 [Os-Talha 500-Vit D3 200 Caplet] Ergocalciferol [Drisdol 50,000 50,000 iu PO DAILY 02/07/17 02/07/17 Intl Units Cap] Gemfibrozil [Lopid] 600 mg PO BID 02/07/17 02/08/17 Omeprazole 20 mg PO BID 02/07/17 02/08/17 Pregabalin [Lyrica] 75 mg PO DAILY 02/07/17 02/08/17 Simvastatin [Zocor] 40 mg PO DAILY 02/07/17 02/08/17 Review of Systems - Physician Review All systems were reviewed & negative as marked: Yes - Review of Systems Constitutional: Normal Eyes: Normal ENT: Normal Respiratory: Normal Cardiovascular: Normal Gastrointestinal: Normal Genitourinary Female: Normal Musculoskeletal: Arthralgias (B/L leg), Back Pain Skin: Normal Neurological: Normal Endocrine: Normal Hemo/Lymphatic: Normal Psychiatric: Normal Physical Exam Vital Signs Reviewed: Yes Vital Signs Temp Pulse Resp BP Pulse Ox 05/14/17 22:19 70 18 122/78 99 05/14/17 18:31 97.6 F 78 21 123/85 97 Temperature: Afebrile Blood Pressure: Normal Pulse: Regular Respiratory Rate: Normal Appearance: Positive for: Well-Appearing, Non-Toxic, Comfortable Pain Distress: Moderate Mental Status: Positive for: Alert and Oriented X 3 - Systems Exam Head: Present: Atraumatic, Normocephalic Pupils: Present: PERRL Extroacular Muscles: Present: EOMI Conjunctiva: Present: Normal Mouth: Present: Moist Mucous Membranes Neck: Present: Normal Range of Motion Respiratory/Chest: Present: Clear to Auscultation, Good Air Exchange. No: Respiratory Distress, Accessory Muscle Use Cardiovascular: Present: Regular Rate and Rhythm, Normal S1, S2. No: Murmurs Abdomen: Present: Normal Bowel Sounds. No: Tenderness, Distention, Peritoneal Signs Back: Present: Paraspinal Tenderness (B/L), Pain with Leg Raise (B/L). No: Midline Tenderness Upper Extremity: Present: Normal Inspection. No: Cyanosis, Edema Lower Extremity: Present: CALF TENDERNESS (B/L), NORMAL PULSES, Normal ROM, Tenderness. No: Edema Neurological: Present: GCS=15, CN II-XII Intact, Speech Normal Skin: Present: Warm, Dry, Normal Color. No: Rashes Psychiatric: Present: Alert, Oriented x 3, Normal Insight, Normal Concentration Medical Decision Making ED Course and Treatment: 05/15/17 01:10 PT presented for stated history. Her lab was unremarkable. She was neurological intact in ED. Doppler US was negative LS CT - Degenerative disease of the spinie On reevaluation patient pain improved she was ambulatory with steady gait in ED Result was DW the pt. She was referred to her PMD/orthopedist Rx of Naprosyn and Baclofen given. - Lab Interpretations Lab Results: 05/14/17 19:05 05/14/17 19:05 Lab Results 05/14/17 20:50: Urine Color Yellow, Urine Appearance Clear, Urine pH 6.0, Ur Specific [place] 1.020, Urine Protein Negative, Urine Glucose (UA) Negative, Urine Ketones Negative, Urine Blood Trace-intact H, Urine Nitrate Negative, Urine Bilirubin Negative, Urine Urobilinogen 0.2, Ur Leukocyte Esterase Negative , Urine RBC 1 - 3, Urine WBC 0 - 2, Ur Epithelial Cells 0 - 2 05/14/17 19:05: Sodium 143, Potassium 4.3, Chloride 106, Carbon Dioxide 27, Anion Gap 14, BUN 22 H, Creatinine 0.9, Est GFR ( Amer) > 60, Est GFR ( Non-Af Amer) > 60, Random Glucose 97, Calcium 9.5, Total Bilirubin 0.6, AST 31, ALT 22, Alkaline Phosphatase 66, Total Protein 7.4, Albumin 4.2, Globulin 3.1, Albumin/Globulin Ratio 1.4 05/14/17 19:05: WBC 11.4 H D, RBC 4.73, Hgb 13.2, Hct 40.4, MCV 85.4, MCH 27.9, MCHC 32.7, RDW 14.6 H, Plt Count 441, MPV 8.6, Gran % 78.0 H, Lymph % (Auto) 16.2 L, [place] % (Auto) 4.9, Eos % (Auto) 0.5 L, Baso % (Auto) 0.4, Gran # 8.87 H , Lymph # 1.9, [place] # 0.6, Eos # 0.1, Baso # 0.05 - RAD Interpretation Radiology Orders: 05/14/17 18:43 DUPLEX LOWER EXTRM VEIN BILAT [US] Stat 05/14/17 20:43 LUMBAR SPINE W/O CONTRAST [CT] Stat - Medication Orders Current Medication Orders: Discontinued Medications Dexamethasone (Decadron Inj) 10 mg IVP STAT STA Stop: 05/14/17 18:45 Last Admin: 05/14/17 19:20 Dose: 10 mg IVP Administration Document 05/14/17 19:20 IT (Rec: 05/14/17 19:20 IT [email or web address]) Charges for Administration # of IVP Administrations 1 Diazepam (Valium) 5 mg IVP ONCE ONE PRN Reason: Protocol Stop: 05/14/17 18:45 Last Admin: 05/14/17 19:20 Dose: 5 mg IVP Administration Document 05/14/17 19:20 IT (Rec: 05/14/17 19:21 IT [email or web address]) Charges for Administration # of IVP Administrations 1 Ketorolac Tromethamine (Toradol) 30 mg IVP STAT STA Stop: 05/14/17 18:45 Last Admin: 05/14/17 19:20 Dose: 30 mg MAR Pain Assessment Document 05/14/17 19:20 IT (Rec: 05/14/17 19:20 IT [email or web address]) Pain Reassessment Is this a pain reassessment? No Sleep Is patient sleeping during reassessment? No Presence of Pain Presence of Pain Yes Pain Scale Used Pain Scale Used Numeric Location Pain Location Body Site Back IVP Administration Document 05/14/17 19:20 IT (Rec: 05/14/17 19:20 IT [email or web address]) Charges for Administration # of IVP Administrations 1 Disposition/Present on Arrival - Present on Arrival Any Indicators Present on Arrival: No History of DVT/PE: No History of Uncontrolled Diabetes: No Urinary Catheter: No History of Decub. Ulcer: No History Surgical Site Infection Following: None - Disposition Have Diagnosis and Disposition been Completed?: Yes Diagnosis: Sciatica, Lumbar radiculopathy Disposition: HOME/ ROUTINE Disposition Time: 22:15 Patient Plan: Discharge Condition: STABLE Discharge Instructions (ExitCare): Lumbar Radiculopathy (ED) Additional Instructions: Follow up with your doctor/Orthopedist Return to ED for any new or worsening symptoms Prescriptions: Baclofen [Lioresal] 5 mg PO BID #10 tab Naproxen [Naprosyn] 500 mg PO BID #20 tab Referrals: Roxy Bucio MD [Staff Provider] - Follow up with primary Forms: [employer] ([place])
[2017-05-14 21:09] LABS: ALB/GLOB RATIO 1.4 (1.1-1.8); ALKALINE PHOSPHATASE 66 U/L (38-126); ALT/SGPT 22 U/L (7-56); AST/SGOT 31 U/L (14-36); BILIRUBIN,TOTAL 0.6 mg/dL (0.2-1.3); BLOOD UREA NITROGEN 22 mg/dL (7-21); CALCIUM 9.5 mg/dL (8.4-10.5); CARBON DIOXIDE 27 mmol/L (21-33); CHLORIDE 106 mmol/L (98-107); GFR AFRICAN-AMERICAN > 60; GLUCOSE,RANDOM 97 mg/dL (70-110); POTASSIUM 4.3 mmol/L (3.6-5.0); SODIUM 143 mmol/L (132-148); TOTAL PROTEIN 7.4 g/dL (5.8-8.3)
[2017-05-14 21:12] LABS: URINE BILIRUBIN NEGATIVE (NEGATIVE); URINE BLOOD TRACE-INTACT (NEGATIVE); URINE GLUCOSE (UA) NEGATIVE (NEGATIVE); URINE KETONE NEGATIVE (NEGATIVE); URINE LEUKOCYTE ESTERASE NEGATIVE Leu/uL (NEGATIVE); URINE PROTEIN NEGATIVE mg/dL (<30 mg/dL); URINE UROBILINOGEN 0.2 E.U./dL (<1 E.U./dL)
[2017-05-14 21:14] LABS: URINE APPEARANCE CLEAR (CLEAR); URINE COLOR YELLOW (YELLOW)
[2017-05-14 21:23] LABS: URINE EPITHELIAL CELLS 0 - 2 /hpf (0-5); URINE WBC 0 - 2 /hpf (0-6)
--- NOTE | 2017-05-14 22:08 | CT ---
EXAM: CT Lumbar Spine Without Intravenous Contrast CLINICAL HISTORY: 56 years old, female; Pain; Low back pain TECHNIQUE: Axial computed tomography images of the lumbar spine without intravenous contrast. All CT scans at this facility use one or more dose reduction techniques, viz.: automated exposure control; ma/kV adjustment per patient size (including targeted exams where dose is matched to indication; i.e. head); or iterative reconstruction technique. Coronal and sagittal reformatted images were created and reviewed. COMPARISON: CR - LS SPINE WITH OBL > 18 YRS OLD 2016-09-17 11:49 FINDINGS: Vertebrae: Degenerative disease is identified, with osteophyte formation. No acute compression fracture. Discs/spinal canal/neural foramina: Degenerative disease is identified, with the space narrowing and vacuum phenomena, specifically at the levels of L4/L5 and L5/S1. Degenerative disease is also noted within the bilateral sacroiliac joints, with sclerosis and vacuum phenomena. Soft tissues: Unremarkable. IMPRESSION: Degenerative disease, without acute fracture, as detailed above.
[2017-05-14 22:20] VITALS: BP 122/78; PULSE 70; RESP 18; O2SAT 99
--- NOTE | 2017-05-15 09:19 | US ---
HISTORY: Leg pain and swelling. Evaluate for DVT PHYSICIAN(S): Scottie Mckeon MD. TECHNIQUE: Duplex sonography and color-flow Doppler with graded compression were used to evaluate the deep venous systems of both lower extremities. The exam is limited by body habitus and edema FINDINGS: The visualized deep venous systems of both lower extremities are sonographically normal and compressible. Normal wave forms and augmentation are seen. There is no sonographic evidence for deep venous thrombosis in the visualized segments of both lower extremities. IMPRESSION: No sonographic evidence for deep venous thrombosis in the visualized segments of both lower extremities.
== END 2017-05-14 22:19 | disposition home or self-care (01) ==
LOC: ED 18:13
DX: M54.16 Radiculopathy, lumbar region (principal); M54.30 Sciatica, unspecified side
CPT/HCPCS: 72131; 80053; 81001; 85025; 93970; 96374; 96375; 99284; J1100; J1885; J3360